=== PATIENT | female | born 1965 | race Hispanic/Latino ===

== ENCOUNTER 2018-07-29 13:01 | Outpatient (CLI) | payer BC ==
[2018-07-29 14:36] LABS: Bilirubin,Urine Negative (Negative); Blood,Urine Negative (Negative); Color,Urine Straw (Yellow); Urobilinogen,Urine < 2.0 mg/dL (<2.0)
[2018-07-29 15:09] LABS: Bacteria,Urine 4+ /HPF (Negative); WBC,Urine > 182.0 /HPF (0.0-6.0)
== END 2018-07-29 13:02 | disposition home or self-care (01) ==
LOC: LAB 13:01
PROVIDERS: ATTEND Obstetrics & Gynecology
DX: N39.0 Urinary tract infection, site not specified (principal)
CPT/HCPCS: 81001; 87076; 87086; 87186